=== PATIENT | female | born 1995 | race Hispanic/Latino ===

== ENCOUNTER 2019-07-26 15:53 | Emergency (ER) | payer MEDICAID ==
[2019-07-26] MEDS ORDERED: ACETAMINOPHEN EXTRA STRENGTH 500 MG TABLET ONE (16:20)
== END 2019-07-26 17:32 | disposition home or self-care (01) ==
LOC: EDH 15:53
DX: S93.402A Sprain of unspecified ligament of left ankle, initial encounter (principal); F32.9 Major depressive disorder, single episode, unspecified; F41.9 Anxiety disorder, unspecified; X58.XXXA Exposure to other specified factors, initial encounter; Y93.89 Activity, other specified; Y92.89 Other specified places as the place of occurrence of the external cause; Y99.8 Other external cause status
CPT/HCPCS: 73610

== ENCOUNTER 2024-02-14 11:59 | Emergency (ER) | payer MEDICAID ==
[~2024-02-14] VITALS: Ht 152.4 cm; Wt 73.9 kg
[2024-02-14 13:33] LABS: APPEARANCE,URINE CLEAR (CLEAR); BILIRUBIN,URINE NEGATIVE (NEGATIVE); COLOR,URINE COLORLESS (YELLOW); GLUCOSE, URINE (UA) NEGATIVE (NEGATIVE); KETONES,URINE NEGATIVE (NEGATIVE); LEUKOCYTE ESTERASE ,URINE NEGATIVE Leu/uL (NEGATIVE); NITRATE,URINE NEGATIVE (NEGATIVE); OCCULT BLOOD,URINE NEGATIVE (NEGATIVE); PROTEIN,URINE NEGATIVE (NEGATIVE); UROBILINOGEN,URINE 0.2 mg/dL (0.2-1.0)
[2024-02-14 13:34] LABS: ADD UA MICROSCOPIC NO
[2024-02-14 13:35] LABS: HCG,QUALITATIVE URINE NEGATIVE (NEGATIVE)
[2024-02-14 14:08] LABS: BASOPHILS # (AUTO) 0.06 K/uL (0.00-0.20); BASOPHILS % (AUTO) 0.7 % (0.0-5.0); EOSINOPHILS # (AUTO) 0.11 K/uL (0.00-0.70); EOSINOPHILS % (AUTO) 1.2 % (0.0-8.0); HEMATOCRIT 38.9 % (36-48); IMMATURE GRANULOCYTE ABSOLUTE 0.03 K/uL (0-1); LYMPHOCYTES # (AUTO) 2.1 K/uL (1.0-4.8); LYMPHOCYTES % (AUTO) 22.9 % (21.0-51.0); MEAN CORPUSCULAR HEMOGLOBIN 26.7 pg (27.0-33.0); MEAN CORPUSCULAR HGB CONC 33.2 g/dL (32.0-36.0); MEAN CORPUSCULAR VOLUME 80.4 fL (79-99); MONOCYTES # (AUTO) 0.5 K/uL (0.1-1.0); MONOCYTES % (AUTO) 5.6 % (3.0-13.0); NEUTROPHILS # (AUTO) 6.3 K/uL (1.8-7.7); NEUTROPHILS % (AUTO) 69.3 % (40.0-77.0); PLATELET COUNT (AUTO) 341 K/uL (130-400); RED BLOOD CELL COUNT(AUTO) 4.84 MIL/uL (4.00-5.50); RED CELL DISTRIBUTION WIDTH 13.7 % (11.0-15.5); WHITE BLOOD COUNT (AUTO) 9.1 K/uL (4.8-10.8)
[2024-02-14 14:20] LABS: CREATININE 0.6 mg/dL (0.5-1.0); POTASSIUM 4.1 mmol/L (3.5-5.1)
[2024-02-14 14:27] LABS: ALBUMIN 3.9 g/dL (3.5-5.0); BILIRUBIN,TOTAL 0.4 mg/dL (0.2-1.0); TOTAL PROTEIN, SERUM 7.9 g/dL (6.0-8.3)
[2024-02-14] MEDS ORDERED: METH4TAB3 PO (14:27)
[2024-02-14] MEDS ORDERED: DIPH50 PO (14:27)
[2024-02-14] MEDS: DEXAMETHASONE SOD PHOSPHATE 4 MG/ML 1ML VIAL IM ONE (14:38)
[2024-02-14] MEDS: DIPHENHYDRAMINE HCL 25 MG CAPSULE PO ONE (14:40)
[2024-02-14 14:50] VITALS: BP 129/85; PULSE 78; RESP 18; O2SAT 98
== END 2024-02-14 15:00 | disposition home or self-care (01) ==
LOC: EDH 11:59
DX: T78.3XXA Angioneurotic edema, initial encounter (principal); F32.A Depression, unspecified
CPT/HCPCS: 99283; 80053; 85025; 81003; 81025; 36415; 96372; J1100; Q0163

== ENCOUNTER 2024-09-09 14:43 | Observation (INO) | payer MEDICAID ==
[~2024-09-09] VITALS: Ht 152.4 cm; Wt 83.0 kg
[~2024-09-09 14:43] MED LIST: DIPH50 PO; METH4TAB3 PO
--- NOTE | 2024-09-09 14:56 | NUR ---
REPORT GIVEN TO ANNA OF L & [facility], PT WILL BE TAKEN AFTER CLEARED BY
[2024-09-09 15:01] VITALS: BP 121/70; PULSE 102; RESP 18; TEMP 98.6; O2SAT 98
--- NOTE | 2024-09-09 15:46 | HMCIMG ---
US OB >14 WEEKS REASON: FALL COMPARISON: None TECHNIQUE: Routine OB sonogram was performed FINDINGS: There is a single fetus in cephalic presentation with positive motion and heartbeat, 146 BPM. Composite gestational age is 33 weeks 3 days. Placenta is anterior and grade 2 with TONIA 17.2 cm. Estimated weight is 2277 g. There is normal-appearing anatomy. IMPRESSION: 1. Single fetus cephalic presentation 33 weeks 3 days composite gestational age. 2. No sonographic evidence of traumatic injury.
--- NOTE | 2024-09-09 16:00 | ERN ---
General Chief Complaint: OB>20 weeks gest. Stated Complaint: ABD PAIN AFTER FALL 31 WEEKS Time Seen by MD: 14:53 Source: patient History of Present Illness Initial Comments PATIENT IS A 29-YEAR-OLD FEMALE COMING IN TO BE EVALUATED FOR ABDOMINAL DISCOMFORT. PATIENT STATES THAT SHE IS A AT 39 WEEKS BY DATE AND SLIPPED EARLIER TODAY LANDING ON HER KNEES AND SLIGHTLY HITTING THE TOP OF HER RIGHT ABDOMEN REGION. NO VAGINAL BLEED PAIN IS MINIMAL. Allergies: Coded Allergies: No Known Allergies (Unverified Allergy, Unknown, 07/26/19) Home Meds Active Scripts Methylprednisolone (Medrol) 4 Mg Tab.ds.pk, 4 MG PO AD, #1 UNIT Prov:ELIZABETH FELIX PRODUCT LEAD 02/14/24 Diphenhydramine HCl (Benadryl) 50 Mg Cap, 50 MG PO Q6H for itching/rash, #20 CAP 0 Refills Prov:ELIZABETH FELIX PRODUCT LEAD 02/14/24 Past Medical History Past Medical History: Anxiety, Bipolar, Depression Past Surgical History: None Female( History) History: Not Applicable LMP: Feb 08, 2024 : 1 ROS Dictation CONSTITUTIONAL: NO CHILLS, NO FEVER, NO WEAKNESS, NO DIAPHORESIS, NO MALAISE. HEAD/FACE: NO SIGNS OF TRAUMA. EENT: NO EYE PAIN, NO BLURRED VISION, NO TEARING, NO DOUBLE VISION, NO EAR PAIN, NO EAR DISCHARGE, NO NOSE PAIN, NO NASAL CONGESTION, NO THROAT PAIN, NO THROAT SWELLING, NO MOUTH PAIN. RESPIRATORY: NO COUGH, NO ORTHOPNEA, NO SOB, NO STRIDOR, NO WHEEZING. CARDIOVASCULAR: NO CHEST PAIN, NO EDEMA, NO PALPITATIONS, NO SYNCOPE. GASTROINTESTINAL/ABDOMINAL: NO ABDOMINAL PAIN, NO CONSTIPATION, NO DIARRHEA, NO NAUSEA, NO VOMITING. GENITOURINARY: NO ABNORMAL DISCHARGE, NO DYSURIA, NO FREQUENT URINATION, NO HEMATURIA. NO COMPLAINTS OF PAIN IN THE GENITALS. MUSCULOSKELETAL: NO BACK PAIN, NO GOUT, NO JOINT PAIN, NO JOINT SWELLING, NO MUSCLE PAIN, NO MUSCLE STIFFNESS, NO NECK PAIN. INTEGUMENTARY: NO CHANGE IN COLOR, NO CHANGE IN HAIR/NAILS, NO DRYNESS, NO LESION, NO LUMPS, NO RASH. NEUROLOGICAL/PSYCH: NO ANXIETY, NOT DEPRESSED, NO EMOTIONAL PROBLEM, NO HEADACHE, NO NUMBNESS, NO PRE-EXISTING DEFICIT, NO HISTORY OF SEIZURES, NO TREMORS, NO WEAKNESS. HEMATOLOGIC/LYMPHATIC: NOT ANEMIC, NO HISTORY OF BLOOD CLOTS, NO APPARENT BLEEDING, NO BRUISING, GLANDS NOT SWOLLEN. ALL SYSTEMS NEGATIVE, EXCEPT NOTED. Physical Exam Physical Exam Dictation VITAL SIGNS: REVIEWED. GENERAL APPEARANCE: ALERT, ORIENTED X3, NO ACUTE DISTRESS, OBESE. HEAD AND FACE: NON-TRAUMATIC. EYES: PERRL, PINK CONJUNCTIVAS, EYELID NO TRAUMA, ANTERIOR CHAMBER CLEAR. EARS: PINNAS INTACT AND NO SIGNS OF TRAUMA OR ERYTHEMA. EAR CANALS CLEAR AND NO DISCHARGE. TMS NO ERYTHEMA. NOSE: NO DISCHARGE, NO BLEEDING. OROPHARYNX: MOUTH NORMAL, TEETH NO CARIES, TONGUE PINK. PHARYNX CLEAR, NO ERYTHEMA. TONSILS NO EXUDATES, NO ABSCESSES NOTED. MUCOUS MEMBRANE MOIST. NECK: SUPPLE, NON-TENDER, NO THYROMEGALY, NO MASSES, NO JVD, NO BRUITS. BREAST: DEFERRED. CHEST: NO TENDERNESS, NO CREPITUS, NO PARADOXICAL MOVEMENT, NO RETRACTIONS. LUNGS: CLEAR, WELL-VENTILATED, SYMMETRIC, NO RALES, NO WHEEZING, NO RHONCHI, NO STRIDOR, GOOD BREATH SOUNDS BILATERALLY. HEART: REGULAR RATE, REGULAR RHYTHM, NO MURMUR, NO GALLOPS. VASCULAR: NO PERIPHERAL EDEMA. ABDOMEN: SOFT, POSITIVE BOWEL SOUNDS, NONDISTENDED, NO GUARDING, NONTENDER, NO REBOUND, NO MASSES NO HEPATOMEGALY, NO SPLENOMEGALY, NO GÓMEZ'S SIGN, NO HERNIAS. RECTAL: DEFERRED. GENITAL: DEFERRED. NEUROLOGICAL: NORMAL SPEECH, GROSS MOTOR FUNCTION INTACT, GROSS SENSORY FUNCTION INTACT. MUSCULOSKELETAL: NECK NONTENDER, FULL RANGE OF MOTION, BACK NONTENDER, FULL RANGE OF MOTION. EXTREMITIES: NONTENDER, FULL RANGE OF MOTION. SKIN: COLOR PINK, DRY, NO TURGOR, NO RASH, NO LACERATIONS, NO ABRASIONS, NO CONTUSIONS. LYMPHATICS: DEFERRED. Results Laboratory and Microbiology Labs Reviewed?: Yes EKG/XRAY/US/CT/MRI Ultrasound Comment [address] [address] IMAGING REPORT Signed PATIENT: MONET WALLACE MR#: [id number] : 1995 SEX: F AGE: 29 LOCATION: ED ORDER [id number] STATUS: REG ER REPORT#: [id number] SERVICE [id number] REASON: FALL ORDERING PHYSICIAN: MARY OLIVAS MD PROCEDURE: OB >14 - US OB >14 WEEKS US OB >14 WEEKS REASON: FALL COMPARISON: None TECHNIQUE: Routine OB sonogram was performed FINDINGS: There is a single fetus in cephalic presentation with positive motion and heartbeat, 146 BPM. Composite gestational age is 33 weeks 3 days. Placenta is anterior and grade 2 with TONIA 17.2 cm. Estimated weight is 2277 g. There is normal-appearing anatomy. IMPRESSION: 1. Single fetus cephalic presentation 33 weeks 3 days composite gestational age. 2. No sonographic evidence of traumatic injury. DICTATED BY: SCOTTY SHERIDAN MD DATE: 09/09/241542 ELECTRONICALLY SIGNED BY: SCOTTY SHERIDAN MD DATE: 09/09/241545 MDM MDM: DIFFERENTIAL DIAGNOSIS: ONE STATUS POST FALL, GREATER THAN 20 WEEKS, PATIENT IS A 29-YEAR-OLD FEMALE COMING IN TO BE EVALUATED FOR ABDOMINAL DISCOMFORT AFTER A FALL. ULTRASOUND DID NOT DISCLOSE ACUTE FINDINGS. PATIENT WILL BE TRANSFERRED TO AND D FOR ONGOING EVALUATION OF ABDOMINAL DISCOMFORT. ED Course Orders Procedure Category Date Status Time Us Ob >14 Weeks US 09/09/24 Resulted 14:57 Vital Signs Date Time Temp Pulse Resp B/P (MAP) Pulse Ox O2 Delivery O2 Flow Rate FiO2 09/09/24 15:01 98.6 102 18 121/70 98 Room Air* 0 21 09/09/24 14:46 98.6 121 19 116/73 96 Room Air 0 DX & DISP Disposition: Transfer Departure Impression: Primary Impression: Fall Additional Impression: greater than 20 weeks gestation Condition: Stable Additional Instructions: FOLLOW-UP WITH PRIMARY CARE PROVIDER IN 1 TO 2 DAYS. TAKE MEDICATIONS DIRECTED HERE IN THE EMERGENCY ROOM. OKAY TO CONTINUE HOME MEDICATIONS UNLESS OTHERWISE DISCUSSED DURING YOUR VISIT IN THE EMERGENCY ROOM TODAY. RETURN TO YOUR NEAREST EMERGENCY ROOM IF SYMPTOMS WORSEN OR IF THERE IS NO IMPROVEMENT. CALL 911 IF YOU NEED IMMEDIATE ASSISTANCE. TAKE TYLENOL [id number] NEEDED AND IF NO CONTRAINDICATIONS ARE PRESENT. INCREASE ORAL HYDRATION. A WOUND CULTURE OR URINE CULTURE WAS ORDERED HERE IN THE EMERGENCY ROOM DEPARTMENT PLEASE FOLLOW-UP WITH PRIMARY CARE PROVIDER AND ADVISE THEM TO GET REPEAT PORTS FROM OUR FACILITY. IF YOU HAD ANY KARI WRAP/SPLINTS THAT WERE APPLIED HERE, PLEASE DO NOT REMOVE THEM UNTIL YOU SEE YOUR PRIMARY CARE OR SPECIALTY. REFERRALS: Referrals: APRIL DINERO Jr., MD (PCP) Time of Disposition: 16:00 MARY OLIVAS MD Sep 09, 2024 16:00
[2024-09-09 17:09] LABS: APPEARANCE,URINE CLEAR (CLEAR); BILIRUBIN,URINE NEGATIVE (NEGATIVE); COLOR,URINE LIGHT-YELLOW (YELLOW); GLUCOSE, URINE (UA) NEGATIVE (NEGATIVE); KETONES,URINE NEGATIVE (NEGATIVE); LEUKOCYTE ESTERASE ,URINE 25 Leu/uL (NEGATIVE); NITRATE,URINE NEGATIVE (NEGATIVE); OCCULT BLOOD,URINE NEGATIVE (NEGATIVE); PH,URINE 6.5 (5.0-8.0); PROTEIN,URINE NEGATIVE (NEGATIVE); UROBILINOGEN,URINE 0.2 mg/dL (0.2-1.0)
[2024-09-09 17:13] LABS: ADD UA MICROSCOPIC YES
[2024-09-09 17:16] LABS: BACTERIA,URINE RARE /HPF (None Seen); MUCUS,URINE RARE LPF (None Seen); SQUAMOUS EPITHELIAL CELL,UR MOD /HPF (0-2)
[2024-09-09] MEDS: acetaMINOPHEN 325 MG TAB PO ONE (21:23)
== END 2024-09-09 22:10 | disposition home or self-care (01) ==
LOC: EDH 14:43 → LDH 14:44 → EDH 16:17
PROVIDERS: ADMIT Obstetrics & Gynecology; ATTEND Obstetrics & Gynecology
DX: O26.893 Other specified pregnancy related conditions, third trimester (principal); R10.84 Generalized abdominal pain; O99.343 Other mental disorders complicating pregnancy, third trimester; F41.9 Anxiety disorder, unspecified; F31.9 Bipolar disorder, unspecified; Z3A.33 33 weeks gestation of pregnancy; Z79.899 Other long term (current) drug therapy; W01.0XXA Fall on same level from slipping, tripping and stumbling without subsequent striking against object, initial encounter; W19.XXXA Unspecified fall, initial encounter; Y93.89 Activity, other specified; Y92.89 Other specified places as the place of occurrence of the external cause; Y99.8 Other external cause status
CPT/HCPCS: 99284; 81001; 76805; G0378 ×6

== ENCOUNTER 2024-10-30 08:00 | Observation (INO) | payer MEDICAID ==
[~2024-10-30] VITALS: Ht 152.4 cm; Wt 83.9 kg
[2024-10-30 08:02] VITALS: BP 129/91; PULSE 94; RESP 18; TEMP 97.8
[2024-10-30 08:39] LABS: ADD UA MICROSCOPIC YES; APPEARANCE,URINE CLOUDY (CLEAR); BILIRUBIN,URINE NEGATIVE (NEGATIVE); COLOR,URINE LIGHT-YELLOW (YELLOW); GLUCOSE, URINE (UA) NEGATIVE (NEGATIVE); KETONES,URINE 5 mg/dL (NEGATIVE); LEUKOCYTE ESTERASE ,URINE 250 Leu/uL (NEGATIVE); NITRATE,URINE NEGATIVE (NEGATIVE); OCCULT BLOOD,URINE LARGE (NEGATIVE); PH,URINE 6.5 (5.0-8.0); PROTEIN,URINE 20 mg/dL (NEGATIVE); UROBILINOGEN,URINE 0.2 mg/dL (0.2-1.0)
[2024-10-30 09:27] LABS: BACTERIA,URINE FEW /HPF (None Seen); MUCUS,URINE RARE LPF (None Seen); RBC,URINE 26-50 /HPF (0-1); SQUAMOUS EPITHELIAL CELL,UR FEW /HPF (0-2)
--- NOTE | 2024-10-30 09:37 | HMCIMG ---
ULTRASOUND OB LIMITED INDICATION: Estimated weight. TECHNIQUE: Real-time transabdominal approach ultrasound examination of the pelvis was performed by the rough rice grader, and images subsequently made available for review. COMPARISON: None FINDINGS: Single live intrauterine gestation in longitudinal lie and cephalic presentation. heart rate = 141 beats per minute. Anterior grade 3 placenta without previa demonstrated. The amniotic fluid volume is normal at 6.0 cm. Stomach, kidneys, urinary bladder, three-vessel cord, and visible portions of the thoracolumbar spine appear grossly normal. Estimated sonographic gestational age = 39 weeks 1 days. Estimated weight = 3668 grams +/- 536 grams. 87th percentile. IMPRESSION: 1. Single live intrauterine gestation in cephalic presentation, and with heart rate of 141 bpm. 2. Amniotic fluid volume at 6.0 cm. 3. Estimated weight = 3668 grams +/- 536 grams. 87th percentile.
[2024-10-30] MEDS: LACTATED RINGERS 1000ML 1,000 ML IV PRN (09:51)
== END 2024-10-30 10:20 | disposition home or self-care (01) ==
LOC: EDH 08:00 → LDH 08:06
PROVIDERS: ADMIT Obstetrics & Gynecology; ATTEND Obstetrics & Gynecology
DX: O46.93 Antepartum hemorrhage, unspecified, third trimester (principal); O26.893 Other specified pregnancy related conditions, third trimester; N89.8 Other specified noninflammatory disorders of vagina; Z79.899 Other long term (current) drug therapy; Z3A.38 38 weeks gestation of pregnancy
CPT/HCPCS: 87086; 81001; 76805; G0378 ×2; G0379; J7120; 59025